=== PATIENT | female | born 1965 | race Caucasian/White ===

== ENCOUNTER 2021-05-05 19:57 | Emergency (ER) | payer SELFPAY ==
--- NOTE | 2021-05-05 20:16 | EDM.PDOC ---
ED HPI GENERAL MEDICAL PROBLEM - General Chief Complaint: Chest Pain Stated Complaint: PATIENT ARRIVED VIA EMT Time Seen by Provider: 05/05/21 20:11 Source of Information: Reports: Patient, EMS, Old Records - History of Present Illness INITIAL COMMENTS - FREE TEXT/NARRATIVE: 55-year-old lady brought to the emergency department via EMS due to chest pain. 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 Soon after that she began to have diaphoresis, shortness of breath, and felt nauseous and went to the bathroom and tried to vomit but only had dry heaves. After an episode of dry heaves she felt extremely dizzy and sat down on the floor. While sitting on the floor she began to have left-sided chest pain she points to an area just to the left of the sternum at approximately T4-T5. She said the pain radiated superiorly and laterally towards her left shoulder and has since radiated down towards her abdomen and all the way down now to her left lower quadrant and left flank. 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 It was determined that she had a pulled muscle. Review of past medical records also shows right bundle branch block from 2013. Initial EKG by EMS showed right bundle branch block with inferior ischemia. Was given 325 mg of aspirin and transported to the emergency department. She states that she has been relatively healthy prior to this event. She states that she has been using an [id number] project called "[employer] She has lost approximately 20 pounds since July 2020. She does not think she is eating less. She does have a history of thyroid goiter with thyroidectomy and has been on thyroid replacement therapy. Her thyroid dose was recently reduced to 170 mcg daily due to weight loss. She also has a history of abdominal surgeries including partial hysterectomy, appendectomy, cholecyste ctomy, and colon resection. She cannot remember why she had the colon resection. Onset: Sudden Left Abdominal Pain Score (Numeric/FACES): 5 - Related Data Allergies Allergy/AdvReac Type Severity Reaction Status Date / Time azithromycin Allergy Cannot Verified 05/05/21 20:42 [From Zithromax Z-Manuel] Remember Home Meds: Home Meds DULoxetine [Cymbalta] 30 mg PO DAILY 05/05/21 [History] Levothyroxine Sodium [Levothyroxine] 175 mcg PO DAILY 05/05/21 [History] traZODone 50 mg PO DAILY 05/05/21 [History] ED ROS GENERAL - Review of Systems Review Of Systems: See Below Constitutional: Reports: Weakness, Diaphoresis HEENT: Reports: No Symptoms Respiratory: Reports: Shortness of Breath Cardiovascular: Reports: Chest Pain, Lightheadedness Endocrine: Reports: Other (History of thyroidectomy treated with levothyroxine) GI/Abdominal: Reports: Abdominal Pain, Nausea, Other (GERD, dry heaves) : Reports: No Symptoms Musculoskeletal: Reports: No Symptoms Skin: Reports: No Symptoms Neurological: Reports: No Symptoms Psychiatric: Reports: Anxiety, Depression Hematologic/Lymphatic: Reports: No Symptoms Immunologic: Reports: No Symptoms ED EXAM, GENERAL - Physical Exam Exam: See Below Exam Limited By: No Limitations General Appearance: Alert, Anxious, Mild Distress Head: Atraumatic, Normocephalic Neck: Normal Inspection Respiratory/Chest: No Respiratory Distress, Lungs Clear, Normal Breath Sounds. No: Crackles, Rales, Wheezing Cardiovascular: Normal Peripheral Pulses, Regular Rate, Rhythm, No Edema, No Gallop, No Murmur Peripheral Pulses: 2+: Radial (L), Radial (R), Dorsalis Pedis (L), Dorsalis Pedis (R) GI/Abdominal: Normal Bowel Sounds, Tender Back Exam: CVA Tenderness (L), Other (Tenderness to palpation over the posterior, lateral thoracic area lateral to the left scapula). No: CVA Tenderness (R) Extremities: Normal Inspection Neurological: Alert, Oriented Psychiatric: Anxious Skin Exam: Warm, Dry, Intact Course - Vital Signs Text/Narrative:: Review of medical records shows that the patient had CBC, CMP on 03/31/2021 and labs were grossly within normal limits. Last TSH was in February 2021 and showed 0.73. Previous TSH was 2.29 in May 2020. Levothyroxine was reduced to 175 mcg daily in February 2021. Labs in the emergency room tonight including troponins x2 are within normal limits. EKG shows chronic right bundle branch block with possible ST segment depression in the inferior leads. After sleeping for about 3 hours between the first and second troponin patient states that she feels a lot better but still has some left back pain and some left anterior chest pain that is reproducible with deep palpation and deep breath. It is possible that the back and chest pain are muscular in nature secondary to the dry heaves that she had prior to experiencing the chest pain. Patient will be discharged to home and encouraged to follow-up with her primary care physician as soon as possible. Patient encouraged to return to the emergency department immediately if she has new onset or worsening symptoms. Last Recorded V/S: Last Vital Signs Temp 36.6 C 05/05/21 19:59 Pulse 87 05/05/21 19:59 Resp 18 05/05/21 19:59 BP 156/94 H 05/05/21 19:59 Pulse Ox 100 05/05/21 19:59 - Orders/Labs/Meds Orders: Active Orders 24 hr Category Date Time Status EKG Documentation Completion [RC] ASDIRECTED Care 05/05/21 20:08 Active CXR [Chest 1V Frontal] [CR] Stat Exams 05/05/21 20:08 Taken EKG 12 Lead [EK] Routine Ther 05/05/21 20:07 Ordered Labs: Laboratory Tests 05/05/21 05/05/21 05/05/21 Range/Units 20:10 20:10 20:10 WBC 9.0 (3.0-10.3) x10-3/uL RBC 4.98 (3.60-5.20) x10(6)uL Hgb 14.3 (11.4-15.5) g/dL Hct 42.3 (34.2-48.2) % MCV 85.0 (76.7-100.5) fL MCH 28.7 (23.9-33.9) pg MCHC 33.7 (31.9-34.8) g/dL RDW 13.6 (12.3-16.5) % Plt Count 305 (151-488) x10(3)uL MPV 8.0 (7.1-12.4) fL Neut % (Auto) 70.3 (30.8-76.2) % Lymph % (Auto) 22.6 (18.4-52.1) % [place] % (Auto) 6.3 (4.4-15.7) % Eos % (Auto) 0.3 L (0.6-8.1) % Baso % (Auto) 0.5 (0.2-1.5) % Neut # (Auto) 6.3 (1.5-6.3) x10-3/uL Lymph # (Auto) 2.0 (1.0-4.4) x10-3/uL [place] # (Auto) 0.6 (0.3-1.0) x10-3/uL Eos # (Auto) 0.0 (0.0-0.8) x10-3/uL Baso # (Auto) 0.0 (0.0-0.1) x10-3/uL Sodium 141 (135-145) mmol/L Potassium 4.1 (3.5-5.3) mmol/L Chloride 102 (100-110) mmol/L Carbon Dioxide 24 (21-32) mmol/L BUN 19 H (7-18) mg/dL Creatinine 0.9 (0.55-1.02) mg/dL Est Cr Clr Drug Dosing TNP Estimated GFR (MDRD) > 60 (>60) BUN/Creatinine Ratio 21.1 H (9-20) Glucose 131 H (80-116) mg/dL Calcium 9.5 (8.6-10.2) mg/dL Total Bilirubin 0.3 (0.1-1.3) mg/dL AST 17 (5-25) IU/L ALT 30 (12-36) U/L Alkaline Phosphatase 91 (56-112) IU/L Troponin I 4.0 (4.0-60.3) pg/mL NT-Pro-B Natriuret Pep (<=125) pg/mL Total Protein 7.8 (6.0-8.0) g/dL Albumin 4.1 (3.5-5.2) g/dL Globulin 3.7 g/dL Albumin/Globulin Ratio 1.1 05/05/21 05/05/21 Range/Units 20:10 23:35 WBC (3.0-10.3) x10-3/uL RBC (3.60-5.20) x10(6)uL Hgb (11.4-15.5) g/dL Hct (34.2-48.2) % MCV (76.7-100.5) fL MCH (23.9-33.9) pg MCHC (31.9-34.8) g/dL RDW (12.3-16.5) % Plt Count (151-488) x10(3)uL MPV (7.1-12.4) fL Neut % (Auto) (30.8-76.2) % Lymph % (Auto) (18.4-52.1) % [place] % (Auto) (4.4-15.7) % Eos % (Auto) (0.6-8.1) % Baso % (Auto) (0.2-1.5) % Neut # (Auto) (1.5-6.3) x10-3/uL Lymph # (Auto) (1.0-4.4) x10-3/uL [place] # (Auto) (0.3-1.0) x10-3/uL Eos # (Auto) (0.0-0.8) x10-3/uL Baso # (Auto) (0.0-0.1) x10-3/uL Sodium (135-145) mmol/L Potassium (3.5-5.3) mmol/L Chloride (100-110) mmol/L Carbon Dioxide (21-32) mmol/L BUN (7-18) mg/dL Creatinine (0.55-1.02) mg/dL Est Cr Clr Drug Dosing Estimated GFR (MDRD) (>60) BUN/Creatinine Ratio (9-20) Glucose (80-116) mg/dL Calcium (8.6-10.2) mg/dL Total Bilirubin (0.1-1.3) mg/dL AST (5-25) IU/L ALT (12-36) U/L Alkaline Phosphatase (56-112) IU/L Troponin I 5.1 (4.0-60.3) pg/mL NT-Pro-B Natriuret Pep 61 (<=125) pg/mL Total Protein (6.0-8.0) g/dL Albumin (3.5-5.2) g/dL Globulin g/dL Albumin/Globulin Ratio Meds: Medications Discontinued Medications Generic Name Dose Route Start Last Admin Trade Name Freq PRN Reason Stop Dose Admin Acetaminophen 650 mg 05/05/21 21:09 05/05/21 21:15 Acetaminophen 325 Mg Tab PO 05/05/21 21:10 650 mg NOW ONE Administration Departure - Departure Time of Disposition: 00:15 Disposition: Home, Self-Care 01 Clinical Impression: Chest pain due to psychological stress Instructions: Nonspecific Chest Pain, Adult, Chest Wall Pain, [id number] Referrals: PCP,None [Primary Care Provider] - Gayatri Harmon NP [Nurse Practitioner] - Forms: ED Department Discharge Additional Instructions: Follow-up with you as soon as possible. Return to the emergency department immediately if you have new onset or increased chest pain, nausea, vomiting, fever, diaphoresis, and other related symptoms. Sepsis Event Note (ED) - Focused Exam Vital Signs: Vital Signs Temp Pulse Resp BP Pulse Ox 05/05/21 19:59 36.6 C 87 18 156/94 H 100 - My Orders Last 24 Hours: My Active Orders 05/05/21 20:07 EKG 12 Lead [EK] Routine 05/05/21 20:08 EKG Documentation Completion [RC] ASDIRECTED CXR [Chest 1V Frontal] [CR] Stat - Assessment/Plan Last 24 Hours: My Active Orders 05/05/21 20:07 EKG 12 Lead [EK] Routine 05/05/21 20:08 EKG Documentation Completion [RC] ASDIRECTED CXR [Chest 1V Frontal] [CR] Stat
--- NOTE | 2021-05-05 20:39 | PCM.EKG ---
#1 Interpretation EKG Date: 05/05/21 Time: 20:00 EKG Interpretation Comments: Normal sinus rhythm, rate 81, right bundle branch block, ST-T segment abnormalities in V2, V3, and minimal ST depression in inferior leads
[2021-05-05] MEDS ORDERED: Acetaminophen 325 MG Tab PO ONE (21:09)
== END 2021-05-06 01:05 | disposition home or self-care (01) ==
LOC: FB.ED 19:57
DX: R07.9 Chest pain, unspecified (principal); F28 Other psychotic disorder not due to a substance or known physiological condition; Z88.1 Allergy status to other antibiotic agents; Z79.899 Other long term (current) drug therapy
CPT/HCPCS: 36415; 71045; 80053; 83880; 84484; 85025; 93005; 99285; A9270